=== PATIENT | male | born 1955 | race Caucasian/White ===

== ENCOUNTER → 2016-12-05 | Outpatient (CLI) | payer OTHER ==
[~2016-12-05] MED LIST: ASCO-96 PO; ASPI-515 PO; ASPI-621 PO; ATOR40TA78 PO; CALCIUM PO; FISH OIL PO; HYDR25LI PO; HYDR25TA6 PO; LEVO200T5 PO; LEVO75TA PO; PRAS10TA4 PO; QUIN40TA7 PO; SELENIUM PO
== END | disposition home or self-care (01) ==
LOC: CFH 08:41
PROVIDERS: ATTEND Internal Medicine Cardiovascular Disease
DX: I25.10 Atherosclerotic heart disease of native coronary artery without angina pectoris (principal); I08.1 Rheumatic disorders of both mitral and tricuspid valves; I37.1 Nonrheumatic pulmonary valve insufficiency; I10 Essential (primary) hypertension; E78.5 Hyperlipidemia, unspecified; F17.210 Nicotine dependence, cigarettes, uncomplicated; Z98.61 Coronary angioplasty status
CPT/HCPCS: 93306

== ENCOUNTER → 2017-10-31 | Outpatient (CLI) | payer OTHER ==
[~2017-10-31] MED LIST changes: +QUIN40TA15 PO; -QUIN40TA7 PO; +REGADENOSON 0.4 MG/5 ML SYRINGE ONE
== END | disposition home or self-care (01) ==
LOC: RAD 07:35
PROVIDERS: ATTEND Internal Medicine Cardiovascular Disease
DX: I25.10 Atherosclerotic heart disease of native coronary artery without angina pectoris (principal); Z98.61 Coronary angioplasty status
CPT/HCPCS: 78452; 93017; A9502; J2785

== ENCOUNTER 2017-11-07 10:17 | Day surgery (SDC) | payer OTHER ==
[2017-11-06 08:12] VITALS: BP 121/67
[2017-11-06 08:27] LABS: MEAN CORPUSCULAR HEMOGLOBIN 18.5 pg (27.5-34.5); MEAN CORPUSCULAR VOLUME 61.9 fL (81-97); MEAN PLATELET VOLUME 7.5 fL (7.4-10.4); PLATELET COUNT 396 x10^3/uL (130-400); RED BLOOD COUNT 4.42 x10^6/uL (4.38-5.82); RED CELL DISTRIBUTION WIDTH 21.8 % (9.4-14.8)
[2017-11-06 08:33] LABS: ANION GAP 9 mmol/L (5-15); CALCIUM 8.5 mg/dL (8.5-10.1); CHLORIDE 110 mmol/L (98-107); CREATININE 1.01 mg/dL (0.7-1.3)
[2017-11-06 09:00] LABS: MEAN CORPUSCULAR HGB CONC 29.9 g/dL (33.2-36.2)
[2017-11-06 09:01] LABS: ANISOCYTOSIS 2+; BASOPHILS # (AUTO) 0.04 x10^3/uL (0-0.1); BASOPHILS % (AUTO) 1 % (0-1); EOSINOPHILS # (AUTO) 0.27 x10^3/uL (0-0.4); EOSINOPHILS % (AUTO) 3 % (1-7); LYMPHOCYTES # (AUTO) 2.33 x10^3/uL (1-3.4); LYMPHOCYTES % (AUTO) 28 % (22-44); MD MORPH REVIEW ONLY; MICROCYTOSIS 2+; MONOCYTES # (AUTO) 0.76 x10^3/uL (0.2-0.8); MONOCYTES % (AUTO) 9 % (2-9); NEUTROPHILS # (AUTO) 4.92 x10^3/uL (1.8-6.8); NEUTROPHILS % (AUTO) 59 % (42-75)
[2017-11-06 09:02] LABS: <PLATELET ESTIMATE> ADEQUATE; <PLT MORPHOLOGY> NORMAL PLT MORPH; OVALOCYTES 1+; POLYCHROMASIA 1+; SCHISTOCYTES 1+; TARGET CELLS 1+
[2017-11-06 09:05] LABS: HYPOCHROMIA 2+
[~2017-11-07] VITALS: Ht 182.9 cm; Wt 118.2 kg
[~2017-11-07 10:17] MED LIST changes: -REGADENOSON 0.4 MG/5 ML SYRINGE ONE
[2017-11-07] MEDS ORDERED: SODIUM CHLORIDE 0.9% 1,000 ML IV ONE (10:28)
[2017-11-07] MEDS ORDERED: MIDAZOLAM 1 MG/ML, 5ML ONE (12:38)
[2017-11-07] MEDS ORDERED: VERAPAMIL 2.5 MG/ML, 2ML ONE (12:38)
[2017-11-07] MEDS ORDERED: FENTANYL PF 100 MCG/2ML ONE (12:38)
[2017-11-07] MEDS ORDERED: TICAGRELOR 90 MG TABLET ONE (12:38)
[2017-11-07] MEDS ORDERED: NITROGLYCERIN 5 MG/ML, 10ML ONE (12:39)
[2017-11-07] MEDS ORDERED: BIVALIRUDIN 250 MG ONE ×2 (12:39→12:59)
[2017-11-07] MEDS ORDERED: HEPARIN 1,000 UNITS/ML, 10ML ONE (12:39)
[2017-11-07] MEDS ORDERED: LIDOCAINE 2%, 20ML ONE (12:39)
[2017-11-07] MEDS ORDERED: ACETAMINOPHEN 325 MG TABLET PO PRN (15:00)
== END 2017-11-07 16:40 ==
LOC: CACL 10:17
PROVIDERS: ATTEND Internal Medicine Cardiovascular Disease
DX: I25.10 Atherosclerotic heart disease of native coronary artery without angina pectoris (principal); E03.9 Hypothyroidism, unspecified; I10 Essential (primary) hypertension; Z79.82 Long term (current) use of aspirin; Z88.0 Allergy status to penicillin; Z98.61 Coronary angioplasty status
CPT/HCPCS: 36415; 80048; 85025; 93460; 93571; 99156; 99157; C1769; C1887; C1894; J0583; J1644; J2250; J3010; J3490; Q9967